=== PATIENT | female | born 1955 | race Caucasian/White ===

== ENCOUNTER 2019-12-18 08:25 | Inpatient (IN) | payer MEDICARE ==
[~2019-12-18] VITALS: Ht 157.5 cm; Wt 66.2 kg
[2019-12-18] MEDS ORDERED: PANTOPRAZOLE 80 MG in SODIUM CHLORIDE 0.9% 50 ML IVPB ONE (08:32)
--- NOTE | 2019-12-18 08:39 | NUR ---
pt to imaging. Addendum: 12/18/19 at 0845 by MTUTTLE PORTABLE CHEST XRAY TO BEDSIDE
[2019-12-18] MEDS ORDERED: PANTOPRAZOLE 40 MG IV ONE (08:52)
[2019-12-18] MEDS ORDERED: LORazepam 2 MG/ML, 1ML ONE (08:53)
[2019-12-18] MEDS ORDERED: PLEASE ENTER HEIGHT AND WEIGHT MC SCH (09:00)
[2019-12-18] MEDS ORDERED: PANTOPRAZOLE 40 MG IV IVPush ONE ×2 (09:00)
[2019-12-18] MEDS ORDERED: LORazepam 2 MG/ML, 1ML IVPush ONE (09:00)
[2019-12-18] MEDS ORDERED: SODIUM CHLORIDE 0.9% 1,000ML IVBOLUS ONE (09:00)
--- NOTE | 2019-12-18 09:33 | NUR ---
PT LAYING IN BED, NO SIGNS OF DISTRESS, RESPIRATIONS EVEN AND UNLABORED. LAB AT BEDSIDE FOR MULTIPLE ATTEMPTS FOR TYPE AND SCREEN. PROVIDED RIMA CARE UPON ARRIVAL FOR DRIED BLOODY STOOL.
[2019-12-18 09:40] LABS: ALANINE AMINOTRANSFERASE 27 U/L (12-78); ALBUMIN 2.8 g/dL (3.4-5.0); ANION GAP 13 mmol/L (5-15); CALCIUM 7.8 mg/dL (8.5-10.1); CHLORIDE 107 mmol/L (98-107); CREATININE 1.55 mg/dL (0.55-1.02)
[2019-12-18 09:42] LABS: ALKALINE PHOSPHATASE 77 U/L (45-117); BILIRUBIN,TOTAL 0.3 mg/dL (0.2-1.0); TOTAL PROTEIN 5.8 g/dL (6.4-8.2)
[2019-12-18] MEDS ORDERED: simvastatin (09:57)
[2019-12-18] MEDS ORDERED: amlodipine (09:57)
[2019-12-18] MEDS ORDERED: [UNRECOGNIZED DRUG - OTHER] (09:57)
[2019-12-18] MEDS ORDERED: bupropion (09:57)
[2019-12-18] MEDS ORDERED: trazadone (09:57)
--- NOTE | 2019-12-18 10:12 | NUR ---
lab to redrawpt
[2019-12-18 10:25] LABS: INTERNATIONAL NORMALIZED RATIO 0.94 (0.93-1.1)
[2019-12-18 10:45] LABS: BASOPHILS # (AUTO) 0.01 x10^3/uL (0-0.1); BASOPHILS % (AUTO) 0 % (0-1); EOSINOPHILS % (AUTO) 0 % (1-7); LYMPHOCYTES # (AUTO) 0.63 x10^3/uL (1-3.4); LYMPHOCYTES % (AUTO) 11 % (22-44); MD NO; MEAN CORPUSCULAR HGB CONC 35.2 g/dL (32.4-35.8); MEAN CORPUSCULAR VOLUME 96.7 fL (80-100); MEAN PLATELET VOLUME 7.9 fL (7.4-10.4); MONOCYTES # (AUTO) 0.44 x10^3/uL (0.2-0.8); MONOCYTES % (AUTO) 8 % (2-9); NEUTROPHILS # (AUTO) 4.73 x10^3/uL (1.8-6.8); NEUTROPHILS % (AUTO) 81 % (42-75); PLATELET COUNT 141 x10^3/uL (130-400); RED BLOOD COUNT 3.17 x10^6/uL (3.82-5.3)
[2019-12-18] MEDS ORDERED: PANTOPRAZOLE 80 MG in SODIUM CHLORIDE 0.9% 100 ML IV SCH (11:00)
[2019-12-18] MEDS ORDERED: FOLIC ACID 5 MG/ML IM ONE (11:30)
[2019-12-18] MEDS ORDERED: SODIUM CHLORIDE 0.9%, 500ML IVBOLUS ONE (11:30)
[2019-12-18] MEDS ORDERED: LORazepam 0.5MG TABLET PO PRN (11:30)
[2019-12-18] MEDS ORDERED: LORazepam 1MG TABLET PO PRN ×4 (11:30)
[2019-12-18] MEDS ORDERED: LORazepam 2 MG/ML, 1ML IV PRN ×5 (11:30)
[2019-12-18] MEDS ORDERED: THIAMINE 200 MG in DEXTROSE 5% 50 ML IVPB ONE (11:30)
--- NOTE | 2019-12-18 11:43 | NUR ---
pt laying in bed, eyes closed, respirations even and unlabored, no signs of distress. medicated to dec. call light within reach.
[2019-12-18] MEDS ORDERED: hydrALAzine 20 MG/ML, 1ML IVPush PRN (12:00)
[2019-12-18] MEDS ORDERED: ACETAMINOPHEN 325 MG TABLET PO PRN (12:00)
[2019-12-18] MEDS ORDERED: ONDANSETRON 2MG/ML, 2ML IVPush PRN (12:00)
[2019-12-18] MEDS ORDERED: ONDANSETRON ODT 4 MG PO PRN (12:00)
[2019-12-18] MEDS ORDERED: morphine SULFATE 10 MG/ML, 1ML IVPush PRN (12:00)
--- NOTE | 2019-12-18 12:45 | NUR ---
GI MD AT BEDSIDE TO UPDATE PT ON PLAN OF CARE. PT REMAINS STABLE, NO SIGNS OF DISTRESS.
[2019-12-18] MEDS ORDERED: PROPOFOL 10 MG/ML, 20ML ONE (13:12)
[2019-12-18] MEDS ORDERED: PROPOFOL 10 MG/ML, 20ML IVPush ONE (13:30)
--- NOTE | 2019-12-18 13:30 | NUR ---
PREPARING FOR EGD, ENDO TEAM TO BEDSIDE, CONSENT SIGNED FOR PROCEDURE AND SEDATION.
--- NOTE | 2019-12-18 14:17 | NUR ---
PROCEDURE COMPLETE, PT TOLERATED WELL, VSS. A&OX4, SITTING UP ON OWN IN BED, NO COMPLAINTS OF PAIN.
--- NOTE | 2019-12-18 14:20 | NUR ---
100mg propofol wasted with adelaide cruz.
--- NOTE | 2019-12-18 14:34 | NUR ---
TASK RN: PT RESTING IN GURNEY W EYES CLOSED. EVEN/REGULAR RESPIRATIONS NOTED. SPO2 >90% ON 2L NC. + STRONG COUGH
--- NOTE | 2019-12-18 14:39 | NUR ---
TASK RN: REPORT TO HERIBERTO SÁNCHEZ
--- NOTE | 2019-12-18 15:36 | NUR ---
PT LAYING IN BED, EYES CLOSED, RESPIRATIONS EVEN AND UNLABORED, NO SIGNS OF DISTRESS.
[2019-12-18 16:01] VITALS: BP 111/71
[2019-12-18] MEDS ORDERED: FLU VACC QS2019-20 36MOS UP/PF 0.5 ML IM ONE (17:00)
[2019-12-18] MEDS: SUCRALFATE 1 GM/10 ML UDC PO SCH ×2 (17:26→22:00)
[2019-12-18] MEDS: NICOTINE 14MG/24 HR PATCH.TD24 TD SCH (17:27)
[2019-12-18] MEDS ORDERED: BUPR75TA6 PO (17:34)
[2019-12-18] MEDS ORDERED: ALPR0.5T6 PO (17:34)
[2019-12-18] MEDS ORDERED: SIMV10TA18 PO (17:34)
[2019-12-18] MEDS ORDERED: AMLO2.5T5 PO (17:34)
[2019-12-18 19:31] VITALS: BP 104/67
[2019-12-18] MEDS: PANTOPRAZOLE 80 MG in SODIUM CHLORIDE 0.9% 100 ML IV SCH (21:45)
[2019-12-18] MEDS: BUPROPION 75 MG TABLET PO SCH (22:00)
[2019-12-18] MEDS: TRAZODONE 50MG TABLET PO PRN (22:00)
[2019-12-19 02:00] VITALS: BP 99/55
[2019-12-19 05:25] LABS: BASOPHILS # (AUTO) 0.02 x10^3/uL (0-0.1); BASOPHILS % (AUTO) 0 % (0-1); EOSINOPHILS # (AUTO) 0.03 x10^3/uL (0-0.4); EOSINOPHILS % (AUTO) 1 % (1-7); LYMPHOCYTES % (AUTO) 24 % (22-44); MD NO; MEAN CORPUSCULAR HEMOGLOBIN 33.1 pg (27.0-34.8); MEAN CORPUSCULAR VOLUME 97.3 fL (80-100); MEAN PLATELET VOLUME 8.3 fL (7.4-10.4); MONOCYTES % (AUTO) 11 % (2-9); NEUTROPHILS # (AUTO) 2.41 x10^3/uL (1.8-6.8); NEUTROPHILS % (AUTO) 64 % (42-75); PLATELET COUNT 120 x10^3/uL (130-400); RED CELL DISTRIBUTION WIDTH 12.5 % (9.6-15.2)
[2019-12-19 05:41] LABS: CALCIUM 7.7 mg/dL (8.5-10.1); CHLORIDE 112 mmol/L (98-107)
[2019-12-19 05:47] LABS: % IRON SATURATION 26 % (20-55); ALANINE AMINOTRANSFERASE 19 U/L (12-78); ALBUMIN 2.6 g/dL (3.4-5.0); ALKALINE PHOSPHATASE 54 U/L (45-117); BILIRUBIN,TOTAL 0.4 mg/dL (0.2-1.0); CREATININE 0.94 mg/dL (0.55-1.02); IRON LEVEL 49 mcg/dL (50-170); TOTAL IRON BINDING CAPACITY 187 mcg/dL (250-450)
[2019-12-19 05:49] LABS: ANION GAP 8 mmol/L (5-15)
[2019-12-19 06:39] VITALS: BP 93/53
[2019-12-19] MEDS: SUCRALFATE 1 GM/10 ML UDC PO SCH ×4 (08:13→20:22)
[2019-12-19] MEDS: BUPROPION 75 MG TABLET PO SCH ×2 (08:13→20:23)
[2019-12-19] MEDS: PANTOPRAZOLE 80 MG in SODIUM CHLORIDE 0.9% 100 ML IV SCH (11:22)
[2019-12-19 12:03] VITALS: BP 108/65
[2019-12-19] MEDS: NICOTINE 14MG/24 HR PATCH.TD24 TD SCH (16:24)
[2019-12-19 19:21] VITALS: BP 112/68
[2019-12-19] MEDS: PANTOPROZOLE 40MG TABLET PO SCH (20:22)
[2019-12-19] MEDS: NEUTRA PHOS K 250 MG TABLET PO SCH (20:22)
[2019-12-19] MEDS: TRAZODONE 50MG TABLET PO PRN (20:24)
[2019-12-20 00:25] VITALS: BP 104/53
[2019-12-20 06:24] LABS: MEAN CORPUSCULAR HEMOGLOBIN 33.1 pg (27.0-34.8); MEAN CORPUSCULAR HGB CONC 34.2 g/dL (32.4-35.8); MEAN CORPUSCULAR VOLUME 96.7 fL (80-100); MEAN PLATELET VOLUME 7.7 fL (7.4-10.4); PLATELET COUNT 134 x10^3/uL (130-400); RED BLOOD COUNT 2.37 x10^6/uL (3.82-5.3); RED CELL DISTRIBUTION WIDTH 12.8 % (9.6-15.2)
[2019-12-20 06:30] LABS: CHLORIDE 109 mmol/L (98-107)
[2019-12-20 06:39] LABS: ANION GAP 8 mmol/L (5-15); CALCIUM 7.8 mg/dL (8.5-10.1); CREATININE 0.69 mg/dL (0.55-1.02)
[2019-12-20 06:49] LABS: BASOPHILS # (AUTO) 0.01 x10^3/uL (0-0.1); BASOPHILS % (AUTO) 0 % (0-1); EOSINOPHILS % (AUTO) 0 % (1-7); LYMPHOCYTES # (AUTO) 0.97 x10^3/uL (1-3.4); LYMPHOCYTES % (AUTO) 27 % (22-44); MD SCAN; MONOCYTES # (AUTO) 0.35 x10^3/uL (0.2-0.8); MONOCYTES % (AUTO) 10 % (2-9); NEUTROPHILS # (AUTO) 2.21 x10^3/uL (1.8-6.8); NEUTROPHILS % (AUTO) 63 % (42-75)
[2019-12-20 08:00] VITALS: BP 136/88
[2019-12-20] MEDS: BUPROPION 75 MG TABLET PO SCH ×2 (08:28→19:53)
[2019-12-20] MEDS: NEUTRA PHOS K 250 MG TABLET PO SCH (08:28)
[2019-12-20] MEDS: SUCRALFATE 1 GM/10 ML UDC PO SCH ×4 (08:28→19:52)
[2019-12-20] MEDS: PANTOPROZOLE 40MG TABLET PO SCH ×2 (08:28→19:53)
[2019-12-20] MEDS ORDERED: POTASSIUM PHOSPHATE 22 MEQ in SODIUM CHLORIDE 0.9% 250 ML IV ONE (08:30)
[2019-12-20] MEDS ORDERED: MAGNESIUM SULFATE PMX 2GM/50ML 50 ML IV ONE (08:30)
[2019-12-20] MEDS: POTASSIUM CHLORIDE 20 MEQ TAB.ER.PRT PO SCH ×2 (08:43→16:47)
[2019-12-20] MEDS: FOLIC ACID 1 MG TABLET PO SCH (14:33)
[2019-12-20] MEDS: THIAMINE 100MG TABLET PO SCH (14:33)
[2019-12-20 14:56] LABS: CULTURE INDICATED? YES; MICROSCOPIC INDICATED
[2019-12-20] MEDS: NICOTINE 14MG/24 HR PATCH.TD24 TD SCH (16:46)
[2019-12-20 16:51] VITALS: BP 103/63
[2019-12-20 19:04] VITALS: BP 101/65
[2019-12-20] MEDS: TRAZODONE 50MG TABLET PO PRN (19:52)
[2019-12-21 01:43] VITALS: BP 99/63
[2019-12-21 05:52] LABS: ANION GAP 5 mmol/L (5-15); CALCIUM 7.9 mg/dL (8.5-10.1); CHLORIDE 110 mmol/L (98-107)
[2019-12-21 05:53] LABS: BASOPHILS # (AUTO) 0.01 x10^3/uL (0-0.1); BASOPHILS % (AUTO) 0 % (0-1); EOSINOPHILS # (AUTO) 0.01 x10^3/uL (0-0.4); EOSINOPHILS % (AUTO) 0 % (1-7); LYMPHOCYTES # (AUTO) 1.04 x10^3/uL (1-3.4); LYMPHOCYTES % (AUTO) 24 % (22-44); MD NO; MEAN CORPUSCULAR HEMOGLOBIN 33.4 pg (27.0-34.8); MEAN CORPUSCULAR HGB CONC 34.5 g/dL (32.4-35.8); MEAN CORPUSCULAR VOLUME 96.9 fL (80-100); MEAN PLATELET VOLUME 8.1 fL (7.4-10.4); MONOCYTES # (AUTO) 0.37 x10^3/uL (0.2-0.8); MONOCYTES % (AUTO) 8 % (2-9); NEUTROPHILS # (AUTO) 2.93 x10^3/uL (1.8-6.8); NEUTROPHILS % (AUTO) 67 % (42-75); PLATELET COUNT 182 x10^3/uL (130-400); RED BLOOD COUNT 2.54 x10^6/uL (3.82-5.3); RED CELL DISTRIBUTION WIDTH 12.9 % (9.6-15.2)
[2019-12-21] MEDS: PANTOPROZOLE 40MG TABLET PO SCH (08:04)
[2019-12-21] MEDS: SUCRALFATE 1 GM/10 ML UDC PO SCH ×3 (08:04→15:41)
[2019-12-21] MEDS: BUPROPION 75 MG TABLET PO SCH (08:04)
[2019-12-21] MEDS: THIAMINE 100MG TABLET PO SCH (08:04)
[2019-12-21] MEDS: FOLIC ACID 1 MG TABLET PO SCH (08:04)
[2019-12-21 08:20] VITALS: BP 107/67
[2019-12-21 13:21] VITALS: BP 108/65
[2019-12-21] MEDS ORDERED: THIA100T67 PO (15:22)
[2019-12-21] MEDS ORDERED: PANT40TA5 PO (15:22)
[2019-12-21] MEDS ORDERED: ACET325T26 PO (15:22)
[2019-12-21] MEDS ORDERED: SUCR1ORA5 PO (15:22)
[2019-12-21] MEDS ORDERED: FOLI-17 PO (15:22)
[2019-12-21] MEDS: NICOTINE 14MG/24 HR PATCH.TD24 TD SCH (17:17)
== END 2019-12-21 17:50 | disposition home or self-care (01) | DRG 377 ==
LOC: ED 10:54 → EDIP 11:19 → 5SO 15:38 → 4EST 12-19 05:30
PROVIDERS: ADMIT Hospitalist; ATTEND Internal Medicine
PROC: 0W3P8ZZ Control Bleeding in Gastrointestinal Tract, Via Natural or Artificial Opening Endoscopic (ICD-10-PCS; principal; 2019-12-18 13:15)
DX: K26.4 Chronic or unspecified duodenal ulcer with hemorrhage (principal); E43 Unspecified severe protein-calorie malnutrition; N17.0 Acute kidney failure with tubular necrosis; D62 Acute posthemorrhagic anemia; E86.0 Dehydration; D69.6 Thrombocytopenia, unspecified; F10.10 Alcohol abuse, uncomplicated; F13.90 Sedative, hypnotic, or anxiolytic use, unspecified, uncomplicated; F17.210 Nicotine dependence, cigarettes, uncomplicated; F32.9 Major depressive disorder, single episode, unspecified; I10 Essential (primary) hypertension; E78.5 Hyperlipidemia, unspecified; F41.9 Anxiety disorder, unspecified; G47.00 Insomnia, unspecified; R00.0 Tachycardia, unspecified; E87.8 Other disorders of electrolyte and fluid balance, not elsewhere classified; Z68.26 Body mass index [BMI] 26.0-26.9, adult; Z90.49 Acquired absence of other specified parts of digestive tract; Z23 Encounter for immunization; Z98.49 Cataract extraction status, unspecified eye; Z71.6 Tobacco abuse counseling
CPT/HCPCS: 36415; 71045; 74176; 80048; 80053; 80307; 81001; 82728; 83540; 83550; 83690; 83735; 84100; 85014; 85018; 85025; 85610; 85730; 86850; 86900; 87086; 90686; 93005; 96361; 96365; 96372; 96375; 99291; G0378; J3411; C9113; J2060; J3475; J7030; J7040; J7050